=== PATIENT | male | born 1945 | race Caucasian/White ===

== ENCOUNTER → 2016-05-24 | Outpatient (CLI) | payer MEDICARE | LOC: KOH-I 09:32 | DX: M25.542 Pain in joints of left hand (principal); R09.89 Other specified symptoms and signs involving the circulatory and respiratory systems | CPT/HCPCS: 73130 ==

== ENCOUNTER → 2016-06-10 | Outpatient (CLI) | payer MEDICARE | LOC: LAB 14:22 | DX: R93.8 Abnormal findings on diagnostic imaging of other specified body structures (principal); R09.89 Other specified symptoms and signs involving the circulatory and respiratory systems | CPT/HCPCS: 36415; 82565; 84520 ==

== ENCOUNTER → 2016-06-11 | Outpatient (CLI) | payer MEDICARE | LOC: KOH-I 10:48 → CT 06-17 13:00 | DX: R09.89 Other specified symptoms and signs involving the circulatory and respiratory systems (principal); R93.8 Abnormal findings on diagnostic imaging of other specified body structures; I65.22 Occlusion and stenosis of left carotid artery | CPT/HCPCS: 70498; Q9962 ==